=== PATIENT | male | born 1975 | race Hispanic/Latino ===

== ENCOUNTER 2018-08-29 12:43 | Emergency (ER) | payer MEDICAID, OTHER ==
[2018-08-29 13:01] VITALS: BMI 34.8
--- NOTE | 2018-08-29 15:05 | RAD ---
Date of service: 08/29/2018 PROCEDURE: Radiographs of the Lumbar Spine. HISTORY: lower back pain COMPARISON: No prior. 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 There is no acute fracture. There is normal lumbar lordosis. DISC SPACES: Multilevel degenerative disc disease in the lower lumbar spine with reduced disc heights and multilevel facet arthropathy, worse at L5-S1. OTHER FINDINGS: No pathologic soft tissue calcifications. Both sacroiliac joints are normal. IMPRESSION: Spondylolysis at L5 with grade 1 anterior listhesis of L5 on S1. Multilevel degenerative disc disease in the lower lumbar spine, worse at L5-S1.
--- NOTE | 2018-08-29 15:10 | ED PDOC ---
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 Pain started 8 month ago that was controlled with pain meds tylenol/ibuprofen. It started to get worse last week with radiation to both legs below the knee level and leg numbness bilaterally. Pain used to be triggered by prolonged sitting/standing but now it's even triggered by lying down. Patient reports chronic incontinence since his back surgery as a kid but he denied recent acute changes and denied trauma. Patient denied associated symptoms of fever, chills, saddle anesthesia, focal neurological deficit, weight loss, fatigue. Patient also denied CP, SOB, palpitation, headache, dysurea, N/V/D, change in bowel movement. Time/Duration: < week Symptom Course: Worsening Quality: Aching Severity Level: 9 Activities at Onset: Rest, Light, Significant, Sleeping Context: Sitting, Standing, Exertion <Roberto Sanabria - Last Filed: 08/29/18 14:52> <Jorge L Boyle - Last Filed: 08/29/18 16:30> - General Chief Complaint: Back Pain Time Seen by Provider: 08/29/18 13:17 Past Medical History - Provider Review Nursing Documentation Reviewed: Yes - Infectious Disease Hx of Infectious Diseases: None - Cardiac Hx Cardiac Disorders: No - Pulmonary Hx Respiratory Disorders: No - Neurological Hx Neurological Disorder: No - Musculoskeletal/Rheumatological Hx Back Pain: Yes - Psychiatric Hx Substance Use: No - Surgical History Other/Comment: L arm surgery, lower back surgery - Anesthesia Hx Anesthesia: Yes Hx Anesthesia Reactions: No Hx Malignant Hyperthermia: No <Roberto Sanabria - Last Filed: 08/29/18 14:52> Family/Social History - Physician Review Nursing Documentation Reviewed: Yes Smoking Status: Light Smoker < 10 Cigarettes Daily Hx Alcohol Use: Yes Frequency of alcohol use: Socially Hx Substance Use: No <Roberto Sanabria - Last Filed: 08/29/18 14:52> Family/Social History: Unknown Family HX <Jorge L Boyle - Last Filed: 08/29/18 16:30> Allergies/Home Meds <Roberto Sanabria - Last Filed: 08/29/18 14:52> <Jorge L Boyle - Last Filed: 08/29/18 16:30> Allergies/Adverse Reactions: Allergies dog dander Allergy (Verified 08/29/18 13:02) CONGESTION peach Allergy (Verified 08/29/18 13:02) ANAPHYLAXIS spinach Allergy (Verified 08/29/18 13:02) ANAPHYLAXIS Review of Systems - Patients Enrolled in [employer] [X]: A conversation was conducted with the primary medical doctor. - Physician Review All systems were reviewed & negative as marked: Yes - Review of Systems Constitutional: Normal. absent: Fatigue, Weight Change, Fevers, Night Sweats Eyes: Normal ENT: Normal Respiratory: Normal Cardiovascular: Normal Gastrointestinal: Normal. absent: Abdominal Pain, Nausea, Vomiting Genitourinary Male: Normal Musculoskeletal: Back Pain, Myalgias Skin: Normal. absent: Rash Neurological: Normal. absent: Headache, Dizziness, Focal Weakness, Speech Changes, Disequilibrium, Seizure Endocrine: Normal Hemo/Lymphatic: Normal Psychiatric: Normal <Roberto Sanabria - Last Filed: 08/29/18 14:52> Physical Exam Vital Signs Reviewed: Yes Vital Signs Temp Pulse Resp BP Pulse Ox 08/29/18 13:06 98.2 F 82 18 120/77 98 Temperature: Afebrile Blood Pressure: Normal Pulse: Regular Respiratory Rate: Normal Appearance: Positive for: Well-Appearing, Non-Toxic, Comfortable Pain Distress: Moderate Mental Status: Positive for: Alert and Oriented X 3 - Systems Exam Head: Present: Atraumatic, Normocephalic Pupils: Present: PERRL Extroacular Muscles: Present: EOMI Conjunctiva: Present: Normal Ears: Present: Normal Mouth: Present: Moist Mucous Membranes Pharnyx: Present: Normal Nose (Internal): Present: Normal Inspection Respiratory/Chest: Present: Clear to Auscultation, Good Air Exchange. No: Respiratory Distress Cardiovascular: Present: Regular Rate and Rhythm, Normal S1, S2 Abdomen: No: Tenderness, Distention, Normal Bowel Sounds Neurological: Present: GCS=15, CN II-XII Intact, Speech Normal Skin: Present: Warm, Dry. No: Rashes Psychiatric: Present: Alert, Oriented x 3 <Roberto Sanabria - Last Filed: 08/29/18 14:52> Vital Signs Temp Pulse Resp BP Pulse Ox 08/29/18 15:00 98 F 86 99 08/29/18 13:06 98.2 F 82 18 120/77 98 <Jorge L Boyle - Last Filed: 08/29/18 16:30> Medical Decision Making - RAD Interpretation Radiology Orders: 08/29/18 13:57 LS SPINE AP/LAT [RAD] Stat - Medication Orders Current Medication Orders: Discontinued Medications Cyclobenzaprine HCl (Flexeril) 10 mg PO STAT STA Stop: 08/29/18 13:58 Last Admin: 08/29/18 14:19 Dose: 10 mg Ketorolac Tromethamine (Toradol) 30 mg IVP STAT STA Stop: 08/29/18 13:58 Last Admin: 08/29/18 14:20 Dose: 30 mg MAR Pain Assessment Document 08/29/18 14:20 GMI (Rec: 08/29/18 14:[address] [facility]-21) Pain Reassessment Is this a pain reassessment? Yes Sleep Is patient sleeping during reassessment? No Presence of Pain Presence of Pain Yes Pain Scale Used Protocol: PSCALES Pain Scale Used Numeric Location Upper or Lower Lower IVP Administration Document 08/29/18 14:20 GMI (Rec: 08/29/18 14:26 GMI [id number]) Charges for Administration # of IVP Administrations 1 <Roberto Sanabria - Last Filed: 08/29/18 14:52> ED Course and Treatment: 08/29/18 15:22 Seen and examined with the resident. Our history and physical exam reveals a gentleman complaining of chronic low back pain for the last 8 or 9 months which has become worse over the last week. No abdominal pain nausea vomiting or diarrhea. No dysuria frequency urgency or hematuria. There is no numbness tingling or paresthesias. No injury or trauma. 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 08/29/18 15:52 Symptoms have improved. Will discharge home accompanied by his girlfriend to follow-up in the clinic. Follow-up in the ER as needed. Prescription for Ultram prednisone and Flexeril given. 08/29/18 16:14 Impression: 43 year old male who presents to the emergency department complaining of lower back pain. Patient Seen with Resident: In agreement with resident note which contains more details about the patient. Patient seen and evaluated with resident. Came up with plan and treatment together. - RAD Interpretation Radiology Orders: 08/29/18 13:57 LS SPINE AP/LAT [RAD] Stat - Medication Orders Current Medication Orders: Discontinued Medications Cyclobenzaprine HCl (Flexeril) 10 mg PO STAT STA Stop: 08/29/18 13:58 Last Admin: 08/29/18 14:19 Dose: 10 mg Ketorolac Tromethamine (Toradol) 30 mg IVP STAT STA Stop: 08/29/18 13:58 Last Admin: 08/29/18 14:20 Dose: 30 mg MAR Pain Assessment Document 08/29/18 14:20 GMI (Rec: 08/29/18 14:26 GMI [email or web address]) Pain Reassessment Is this a pain reassessment? Yes Sleep Is patient sleeping during reassessment? No Presence of Pain Presence of Pain Yes Pain Scale Used Protocol: PSCALES Pain Scale Used Numeric Location Upper or Lower Lower IVP Administration Document 08/29/18 14:20 GMI (Rec: 08/29/18 14:26 GMI [email or web address]) Charges for Administration # of IVP Administrations 1 <Jorge L Boyle - Last Filed: 08/29/18 16:30> - Scribe Statement The provider has reviewed the documentation as recorded by the Annelise Alas Provider Scribe Attestation: All medical record entries made by the Scribe were at my direction and personally dictated by me. I have reviewed the chart and agree that the record accurately reflects my personal performance of the history, physical exam, medical decision making, and the department course for this patient. I have also personally directed, reviewed, and agree with the discharge instructions and disposition. <Jorge L Boyle - Last Filed: 08/29/18 16:30> Disposition/Present on Arrival - Present on Arrival Any Indicators Present on Arrival: No History of DVT/PE: No History of Uncontrolled Diabetes: No Urinary Catheter: No History of Decub. Ulcer: No History Surgical Site Infection Following: None <Roberto Sanabria - Last Filed: 08/29/18 14:52> - Present on Arrival Any Indicators Present on Arrival: No History of DVT/PE: No History of Uncontrolled Diabetes: No Urinary Catheter: No History of Decub. Ulcer: No - Disposition Have Diagnosis and Disposition been Completed?: Yes Disposition Time: 15:52 Patient Plan: Discharge <[place]Jorge L - Last Filed: 08/29/18 16:30> - Disposition Diagnosis: Low back pain Disposition: HOME/ ROUTINE Patient Problems: Current Active Problems Problem Status Onset Low back pain Acute Condition: IMPROVED Discharge Instructions (ExitCare): Low Back Pain in Adults Additional Instructions: Rest and moist heat. Follow-up in the clinic. Follow-up in ER as needed. Prescriptions: Cyclobenzaprine [Flexeril] 5 mg PO Q8 #15 tab RX: predniSONE [predniSONE Tab] 20 mg PO DAILY #10 tab Tramadol HCl [Ultram] 50 mg PO Q6 PRN #15 tab PRN Reason: Pain Referrals: Bill Vasquez [Outside] - Follow up with primary [facility] [Outside] - Follow up with primary Forms: Bill Coles (Swedish), WORK NOTE
[2018-08-29 15:17] VITALS: TEMP 98; O2SAT 99
[2018-08-29 16:47] VITALS: BP 124/72; PULSE 75; RESP 17
== END 2018-08-29 16:45 | disposition home or self-care (01) ==
LOC: ED 12:43
DX: M54.5 Low back pain (principal); F17.210 Nicotine dependence, cigarettes, uncomplicated
CPT/HCPCS: 72100; 96374; 99282; J1885